=== PATIENT | male | born 1980 | race Caucasian/White ===

== ENCOUNTER 2019-11-16 16:24 | Emergency (ER) | payer MEDICAID ==
[~2019-11-16] VITALS: Ht 165.1 cm; Wt 117.9 kg
--- NOTE | 2019-11-16 16:24 | NUR ---
PT CATHY ALS TO ER BED 12. RN EVALUATING AT BEDSIDE.
[2019-11-16 16:26] VITALS: BP 160/90
--- NOTE | 2019-11-16 16:30 | NUR ---
PT C/O NON-RADIATING PRESSURE CHEST PAIN ON STERNAL AREA X 1 HR PRIOR TO ARRIVAL, GIVEN 2 NITRO AND 324 ASPIRIN IN ROUTE. PT REPORTS HE HAD THE SAME SX 1 MONTH AGO AND DX WITH ANGINA, HE TOOK NITRO WITH RELIEF. HE STATES HE HAS HAD THIS INTERMITTENT CP SINCE THEN. LUNGS CLEAR BL; HR EVEN AND REGULAR; PT DENIES ANY FEVER, CP, SOB, OR COUGH AT THIS TIME; PATIENT STATES PAIN OF 5/10 AT THIS TIME; VSS; PATIENT POSITIONED FOR COMFORT; HOB ELEVATED; BEDRAILS UP X2; BED DOWN. ER MD MADE AWARE OF PT STATUS.
[2019-11-16 17:24] LABS: BASOPHILS # (AUTO) 0.1 K/uL (0.00-0.22); BASOPHILS % (AUTO) 1.5 % (0.0-2.0); EOSINOPHILS # (AUTO) 0.1 K/uL (0-0.4); LYMPHOCYTES # (AUTO) 2.4 K/uL (2.0-11.5); LYMPHOCYTES % (AUTO) 35.7 % (20.5-51.1); MEAN CORPUSCULAR HEMOGLOBIN 30 pg (27-31); MEAN CORPUSCULAR HGB CONC 33 g/dL (33-37); MEAN CORPUSCULAR VOLUME 88.4 fL (80-94); MONOCYTES # (AUTO) 0.5 K/uL (0.8-1.0); MONOCYTES % (AUTO) 7.6 % (1.7-9.3); NEUTROPHILS # (AUTO) 3.7 K/uL (1.8-7.7); NEUTROPHILS % (AUTO) 54.2 % (42.2-75.2); PLATELET COUNT (AUTO) 229 K/uL (140-450); RED BLOOD CELL COUNT(AUTO) 5.43 MIL/uL (4.20-6.10); RED CELL DISTRIBUTION WIDTH 14.1 % (11.6-13.7); WHITE BLOOD COUNT (AUTO) 6.8 K/uL (4.8-10.8)
--- NOTE | 2019-11-16 17:30 | NUR ---
PT AMBULATED TO THE BATHROOM WITH STEADY GAIT.
[2019-11-16 17:53] LABS: ANION GAP 11.4 (8-16); CARBON DIOXIDE 30.3 mmol/L (21-32); CREATININE 0.9 mg/dL (0.6-1.3); POTASSIUM 3.7 mmol/L (3.5-5.1); TOTAL BILIRUBIN 0.6 mg/dL (0.0-1.0)
[2019-11-16] MEDS ORDERED: LIDOCAINE VISCOUS 2% 20 ML UDC PO ONE (18:00)
[2019-11-16] MEDS ORDERED: ALUMINUM HYD/MAG/SIMETHICONE 30 ML UDC PO ONE (18:00)
[2019-11-16 18:23] VITALS: BP 136/74
--- NOTE | 2019-11-16 18:23 | NUR ---
Patient discharged with v/s stable. Written and verbal after care instructions given and explained. Patient verbalized understanding. Ambulatory with steady gait. All questions addressed prior to discharge. Advised to follow up with PMD.
== END 2019-11-16 18:23 | disposition home or self-care (01) ==
LOC: MED 16:24
DX: R07.9 Chest pain, unspecified (principal)
CPT/HCPCS: 36415; 71045; 80053; 83880; 84484; 85025; 93005; 99285; Q0092